=== PATIENT | female | born 1965 | race Caucasian/White ===

== ENCOUNTER 2023-01-20 07:05 | Day surgery (SDC) | payer OTHER ==
[~2023-01-20] VITALS: Ht 152.4 cm; Wt 68.0 kg
[2023-01-20] MEDS ORDERED: fentaNYL citrate 0.05 MG/ML VIAL ONE (07:58)
[2023-01-20] MEDS ORDERED: LIDOCAINE 2% 100 MG/5 ML UJET TP ONE (07:58)
[2023-01-20] MEDS ORDERED: fentaNYL citrate 0.05 MG/ML VIAL IVP ONE (08:50)
== END 2023-01-20 09:09 | disposition home or self-care (01) ==
LOC: MDS 07:05 → MMU 07:06 → MDS 09:03
PROVIDERS: ATTEND Internal Medicine Gastroenterology
DX: Z12.11 Encounter for screening for malignant neoplasm of colon (principal); K63.5 Polyp of colon; K57.30 Diverticulosis of large intestine without perforation or abscess without bleeding; Z90.49 Acquired absence of other specified parts of digestive tract
CPT/HCPCS: 45385; J3010